=== PATIENT | female | born 1995 | race Caucasian/White ===

== ENCOUNTER 2018-12-08 13:31 | Emergency (ER) | payer OTHER ==
[~2018-12-08] VITALS: Ht 149.9 cm; Wt 56.0 kg
[2018-12-08 13:33] VITALS: BP 120/75
[2018-12-08] MEDS ORDERED: OXYcodone/APAP 5/325MG TABLET PO ONE (14:30)
[2018-12-08] MEDS ORDERED: OXYcodone/APAP 5/325MG TABLET ONE (14:34)
== END 2018-12-08 15:17 | disposition home or self-care (01) ==
LOC: ED 14:19
DX: S82.61XA Displaced fracture of lateral malleolus of right fibula, initial encounter for closed fracture (principal); M25.571 Pain in right ankle and joints of right foot; W07.XXXA Fall from chair, initial encounter; Y93.89 Activity, other specified; Y92.828 Other wilderness area as the place of occurrence of the external cause; Y99.8 Other external cause status
CPT/HCPCS: 99283